=== PATIENT | female | born 1980 | race Caucasian/White ===

== ENCOUNTER 2022-10-08 09:14 | Emergency (ER) | payer MEDICAID ==
[~2022-10-08] VITALS: Ht 160 cm; Wt 62.0 kg
[2022-10-08 09:19] VITALS: BP 146/92
[2022-10-08 11:25] LABS: BASOPHILS % 0.4 % (0.0-2.0); EOSINOPHILS % 0.7 % (0.0-5.0); HEMATOCRIT. 36.4 % (36.0-48.0); HEMOGLOBIN. 12.2 g/dL (12.0-16.0); LYMPHOCYTES % 35.9 % (20.0-50.0); MEAN CORPUSCULAR VOLUME 92.2 fL (81.0-99.0); MEAN PLATELET VOLUME 9.3 fl (7.4-10.4); MONOCYTES % 8.3 % (2.0-8.0); NEUTROPHILS % 54.7 % (40.0-76.0); PLATELET 179 x1000/uL (130-400); RED BLOOD CELL COUNT 3.95 mill/uL (4.2-5.4); RED CELL DISTRIBUTION WIDTH 14.1 % (11.6-14.6)
[2022-10-08 11:35] LABS: CHLORIDE 107 mEq/L (98-107)
[2022-10-08 11:43] LABS: HCG SCREEN NEGATIVE
[2022-10-08] MEDS ORDERED: LORA-249 MT (14:30)
[2022-10-08] MEDS ORDERED: IOHEXOL-350 100 ML BOTTLE ONE (14:56)
== END 2022-10-08 15:06 | disposition home or self-care (01) ==
LOC: ER 09:14
DX: F41.9 Anxiety disorder, unspecified (principal); R13.10 Dysphagia, unspecified; M79.7 Fibromyalgia; Z98.890 Other specified postprocedural states
CPT/HCPCS: 36415; 71275; 80053; 84443; 84484; 84703; 85025; 85379; 99284; Q9967; Z7610

== ENCOUNTER 2025-02-17 11:26 | Emergency (ER) | payer MEDICAID ==
[~2025-02-17] VITALS: Ht 160 cm; Wt 65.0 kg
[~2025-02-17 11:26] MED LIST: LORA-249 MT
[2025-02-17 11:34] VITALS: O2SAT 99
[2025-02-17 11:50] LABS: CLARITY URINE CLEAR (CLEAR); COLOR URINE YELLOW (YELLOW); GLUCOSE URINE NEGATIVE (NEGATIVE); KETONES URINE NEGATIVE (NEGATIVE); LEUKOCYTE ESTERASE URINE NEGATIVE (NEGATIVE); NITRITE URINE NEGATIVE (NEGATIVE); OCCULT BLOOD URINE 1+ (NEGATIVE); PH URINE 7.0 (4.5-8.0); PROTEIN URINE NEGATIVE (NEGATIVE); SPECIFIC GRAVITY URINE 1.013 (1.005-1.030); UROBILINOGEN URINE 0.2 E.U./dL (0.2-1.0)
[2025-02-17 11:53] LABS: BASOPHILS % 0.4 % (0.0-2.0); EOSINOPHILS % 0.8 % (0.0-5.0); HEMATOCRIT. 37.6 % (36.0-48.0); HEMOGLOBIN. 12.6 g/dL (12.0-16.0); LYMPHOCYTES % 25.7 % (20.0-50.0); MEAN PLATELET VOLUME 9.1 fl (7.4-10.4); MONOCYTES % 7.2 % (2.0-8.0); NEUTROPHILS % 65.9 % (40.0-76.0); PLATELET 171 x1000/uL (130-400); RED BLOOD CELL COUNT 4.05 mill/uL (4.2-5.4); RED CELL DISTRIBUTION WIDTH 13.7 % (11.6-14.6)
[2025-02-17 12:09] LABS: CREATININE 0.8 mg/dL (0.6-1.0); UREA NITROGEN BLOOD 15 mg/dL (9-23)
[2025-02-17 12:31] LABS: SQUAMOUS EPITHELIAL CELL URINE 3+ /lpf (RARE/1+)
[2025-02-17 12:32] LABS: RBC URINE 0-2 /hpf (0-2); WBC URINE 0-2 /hpf (0-2)
[2025-02-17 12:34] LABS: BACTERIA URINE TRACE
[2025-02-17 12:57] LABS: HCG SCREEN NEGATIVE
[2025-02-17] MEDS: KETOROLAC 30MG/ML VIAL IM NR (13:12)
[2025-02-17] MEDS ORDERED: IBUP-2030 MT (17:12)
[2025-02-17 17:22] VITALS: BP 126/72; PULSE 86; RESP 18; TEMP 37.1; O2SAT 100
[2025-02-17] MEDS ORDERED: IOHEXOL-300 100 ML BOTTLE ONE (23:24)
== END 2025-02-17 17:23 | disposition home or self-care (01) ==
LOC: ER 11:26
DX: R10.31 Right lower quadrant pain (principal); R30.0 Dysuria; M79.7 Fibromyalgia; Z79.899 Other long term (current) drug therapy; Z98.890 Other specified postprocedural states
CPT/HCPCS: 80048; 81003; 84703; 83690; 85025; 36415; 74177; 76705; 76857; 96372; 99285; Q9967; J1885; Z7610 ×2

== ENCOUNTER 2025-02-18 11:41 | Emergency (ER) | payer MEDICAID ==
[~2025-02-18] VITALS: Ht 162.6 cm; Wt 68.0 kg
[~2025-02-18 11:41] MED LIST changes: +IBUP-2030 MT
[2025-02-18 11:52] VITALS: O2SAT 99
[2025-02-18] MEDS: KETOROLAC 15MG/ML VIAL IM ONE (12:42)
[2025-02-18 13:07] LABS: BASOPHILS % 0.5 % (0.0-2.0); EOSINOPHILS % 0.8 % (0.0-5.0); HEMATOCRIT. 37.7 % (36.0-48.0); HEMOGLOBIN. 12.7 g/dL (12.0-16.0); LYMPHOCYTES % 31.7 % (20.0-50.0); MEAN PLATELET VOLUME 8.9 fl (7.4-10.4); MONOCYTES % 7.4 % (2.0-8.0); NEUTROPHILS % 59.6 % (40.0-76.0); PLATELET 166 x1000/uL (130-400); RED BLOOD CELL COUNT 4.11 mill/uL (4.2-5.4); RED CELL DISTRIBUTION WIDTH 13.8 % (11.6-14.6)
[2025-02-18 13:20] LABS: CREATININE 0.8 mg/dL (0.6-1.0); UREA NITROGEN BLOOD 19 mg/dL (9-23)
[2025-02-18 13:42] LABS: HCG SCREEN NEGATIVE
[2025-02-18 15:55] VITALS: BP 115/73; PULSE 64; RESP 16; TEMP 37.1; O2SAT 99
== END 2025-02-18 16:00 | disposition home or self-care (01) ==
LOC: ER 11:41
DX: N83.201 Unspecified ovarian cyst, right side (principal); Z98.890 Other specified postprocedural states
CPT/HCPCS: 36415; 76830; 76856; 80048; 84703; 85025; 93976; 99284